=== PATIENT | male | born 1985 | race Caucasian/White ===

== ENCOUNTER 2024-11-20 18:08 | Emergency (ER) | payer OTHER ==
[2024-11-20] MEDS: Acetaminophen/HYDROcodone 325-10 MG Tab PO ONE (22:51)
== END 2024-11-20 23:26 | disposition home or self-care (01) ==
LOC: JP.ED 18:08
DX: S82.142A Displaced bicondylar fracture of left tibia, initial encounter for closed fracture (principal); X50.1XXA Overexertion from prolonged static or awkward postures, initial encounter
CPT/HCPCS: 73562; 73700; 96372; 99282; 99284; A9270; J1171